=== PATIENT | male | born 1950 | race Caucasian/White ===

== ENCOUNTER → 2017-08-22 | Outpatient (REF) | payer MEDICARE, OTHER ==
[2016-10-30 10:49] VITALS: BMI 48.9
[~2017-08-22] MED LIST: ACET500T68 PO; ALLO-2; ASPI-816; DOCU-416 PO; FINA5TAB64 PO; LISI-355 PO; LOR5/325 PO; NEOM1PAC11 TP; NITR-105 PO; NITR-106 PO; OXYB15TA17 PO; OXYC-865 PO; PANT40TA65 PO; SIMV-54 PO; SULF-198 PO; TAMS0.4C25 PO
== END ==
LOC: ZZSENDIN 16:12
PROVIDERS: ATTEND Urology
DX: N39.0 Urinary tract infection, site not specified (principal); R35.0 Frequency of micturition
CPT/HCPCS: 81001; 87088

== ENCOUNTER 2018-01-29 00:12 | Day surgery (SDC) | payer MEDICARE, OTHER ==
[2016-10-30 10:49] VITALS: Ht 167.6 cm; Wt 140.6 kg
[2018-01-25 13:38] LABS: PLATELET COUNT, AUTOMATED 168 K/uL (150-450)
--- NOTE | 2018-01-25 13:44 | EKG ---
FACILITY: [facility] - [place] PATIENT NAME: ARSH MANRIQUEZ : [id number] MR: [id number] V: [id number] EXAM DATE: ORDERING PHYSICIAN: DELFINA KWOK TECHNOLOGIST: CHEKO Doyle Reason : PRE-OP Blood Pressure : / mmHG Vent. Rate : 095 BPM Atrial Rate : 095 BPM P-R Int : 220 ms QRS Dur : 142 ms QT Int : 374 ms P-R-T Axes : 000 -59 042 degrees QTc Int : 469 ms Sinus rhythm with 1st degree AV block Left axis deviation Right bundle branch block Abnormal ECG When compared with ECG of 28-JUL-2016 09:42, No significant change was found Confirmed by MANOJ LEIGH ([id number]) on 01/26/2018 6:42:42 AM Referred By: ARACELY Confirmed By:MANOJ LEIGH
[~2018-01-29] VITALS: Ht 167.6 cm; Wt 140.6 kg
[~2018-01-29 00:12] MED LIST changes: -ASPI-816; +ASPI-870; +PIOG30TA3 PO
[2018-01-29] MEDS ORDERED: fentaNYL CITR 100 MCG/2 ML AMP ONE ×3 (09:24→13:18)
[2018-01-29] MEDS ORDERED: LIDOCAINE 2% IV 100 MG/5ML SYR ONE (09:25)
[2018-01-29] MEDS ORDERED: PROPOFOL EMUL(*) 10MG/ML 20 ML 20 ML ONE (09:26)
[2018-01-29] MEDS ORDERED: LIDOCAINE/SOD BICARB 8.4% SYR ID ONE (10:00)
[2018-01-29] MEDS ORDERED: LEVOFLOXACIN/D5W*500 MG/100 ML 100 ML IVPB ONE (10:00)
[2018-01-29] MEDS ORDERED: MIDAZOLAM 2 MG/2 ML VIAL IVP PRN (10:00)
[2018-01-29] MEDS ORDERED: NORMOSOL R SOLN(*) 1000 ML BAG 1,000 ML IV PRN (10:00)
[2018-01-29 10:04] VITALS: BP 121/77
--- NOTE | 2018-01-29 11:27 | HISTORY AND PHYSICAL ---
DATE OF ADMISSION: January 29, 2018 CHIEF COMPLAINT Elevated post void residual with urinary stricture disease. HISTORY OF PRESENT ILLNESS Patient is a 67-year-old white male with a long history of stricture disease dating back to his mid 20s. He was originally see in the urology clinic the end of 2015. At that time, he had a urinary tract infection and was in acute urinary retention. He was subsequently taken to the operating room on October 17. At that time, his bulbar and pendulous urethra appeared normal. He had slight narrowing of the distal urethra. He underwent a PVP prostate, which was partially completed secondary to a scope malfunction. Since that time, he has been doing well until the past two to three weeks, when he has been reporting sensation of incomplete voiding and decreased stream. When seen in the urology clinic, he had a post void residual of 750 cc. Flexible cystoscopy revealed an approximately 12-Nauruan short urethral stricture in the mid pendulous urethra. I did not advance the scope beyond this point in the office. He is now being brought to the office for planned anesthetic cystoscopy, possible urethral dilation VIU. I also considered him for possible TURP for any remaining anonymous prostatic tissue which may be causing obstruction. PAST MEDICAL HISTORY * Hypertension. * Hypercholesterolemia. * Gout. * COPD. * Urethral stricture disease with elevated post void residuals and history of urinary tract infections. PAST SURGICAL HISTORY * Cholecystectomy. * Appendectomy. * Urethral dilation done in approximately 2009. * Partial photovaporization of prostate in September 2016. ALLERGIES PENICILLIN. CURRENT MEDICATIONS * Lisinopril. * Hydrochlorothiazide * Simvastatin. * Allopurinol. * Finasteride. * Tamsulosin. * Aspirin. * Pioglitazone. FAMILY HISTORY Noncontributory. REVIEW OF SYSTEMS Patient denies shortness of breath, chest pain, nausea or vomiting, fever, chills, liver disease or chronic headache. PHYSICAL EXAMINATION Patient is a well-developed, obese white male in no acute distress. HEENT: Normocephalic, atraumatic. Chest is clear to auscultation bilaterally. Cardiovascular: Regular rate and rhythm. Abdomen: Soft and obese. No masses palpated. : Deferred to OR. Extremities: Without clubbing, cyanosis or edema. Neurological: Nonfocal. ASSESSMENT * 67-year-old white male with long history of urethral stricture disease, now with recurrent mid pendulous stricture as well as elevated post void residuals. PLAN Possible urethral dilation and VIU if indicated. MTDD
[2018-01-29] MEDS ORDERED: IOPAMIDOL-200 50 ML VIAL IS ONE (12:05)
[2018-01-29] MEDS ORDERED: ONDANSETRON 4 MG/2 ML VIAL ONE (12:40)
[2018-01-29] MEDS ORDERED: BELLADONNA ALK/OPIUM 60MG SUPP PR ONE (12:47)
[2018-01-29] MEDS ORDERED: WATER STERILE IRRIG(*) 1000ML 1,000 ML ONE (13:00)
[2018-01-29] MEDS ORDERED: PHEN200T32 PO (13:30)
[2018-01-29] MEDS ORDERED: DOCU-416 PO (13:30)
[2018-01-29] MEDS ORDERED: HYDR453.8 TP (13:31)
--- NOTE | 2018-01-29 13:36 | RADIOLOGY IMAGING REPORT ---
FACILITY: [facility] [place]IENT NAME: Dayne Lao : 1950 MR: [id number] V: [id number] EXAM DATE: ORDERING PHYSICIAN: PRECIOUS YUAN TECHNOLOGIST: Location: [facility] [place] Patient: Dayne Lao : 1950 Visit/Account:[id number] Date of Sevice: 01/29/2018 OR fluoroscopy films: Pelvis History:VIU Comparison:None Findings: Fluoroscopy and imaging was provided for Dr. Yuan. 4 seconds of fluoroscopy time was uti lized for a AK of 7.47 mGy. 2 images of the pelvis are archived to PACS which demonstrate procedure in progress. IMPRESSION: Fluoroscopy and imaging provided for Dr. Yuan please see his report for details. Report Dictated By: Nelia Jerome MD at 01/29/2018 1:29 PM Report E-Signed By: Nelia Jerome MD at 01/29/2018 1:32 PM WSN:[id number]
[2018-01-29] MEDS ORDERED: APAP/HYDROCODONE 325/5 TAB PO ONE (13:55)
--- NOTE | 2018-01-29 13:59 | OPERATIVE REPORT 1 ---
EVENT DATE: January 29, 2018 SURGEON: Raymond Yuan MD ANESTHESIOLOGIST: Dale Slade MD ANESTHESIA: General anesthetic. PREOPERATIVE DIAGNOSIS Urethral stricture. POSTOPERATIVE DIAGNOSIS Urethral stricture. PROCEDURES PERFORMED 1. Cystoscopy. 2. Visual internal urethrotomy and urethral dilation. 3. Hedrick catheter placement over wire. ESTIMATED BLOOD LOSS 5 mL INTRAVENOUS FLUIDS Crystalloids. DRAINS A 24-Congolese Hedrick catheter. COMPLICATIONS None. CONDITION Patient taken to recovery area awake, in stable condition. STATEMENT OF MEDICAL NECESSITY Patient is a 67-year-old white male with a long history of urethral stricture disease who recently noted decreased force of stream. In the office, cystoscopy was performed. He was noted to have a proximal pendulous urethral stricture of approximately 12-Congolese in size and an elevated postvoid residual of approximately 700 mL. He is now being brought to the operating room for planned anesthetic cystoscopy, possible VIU, urethral dilation, and TURP as indicated. DESCRIPTION OF OPERATION PERFORMED Patient was brought to the operating room. After general anesthetic was obtained, he was placed in the dorsal lithotomy position and prepped and draped in the usual sterile manner. Anesthetic cystoscopy was performed with a 17- Congolese Black scope with the 12-degree lens. He had a normal-appearing distal pendulous urethra. Down at the proximal pendulous portion, there was mild narrowing of a short length of approximately 1 to 2 mm. It was approximately 12 -Congolese in size and thin veil-like in nature. The scope easily passed through this narrowing down into the bulb where a tighter stricture at the mid bulbar urethra was encountered. This was approximately 8-Congolese in size. At this point, a Super Stiff wire was advanced in an access sheath through the working channel of the scope. The wire was advanced beyond the stricture into the bladder where it was curled, which was confirmed by fluoroscopic imaging. At this point, the cystoscope was removed, and the VIU equipment was inserted. The cold knife with a 20-Congolese sheath was then used to perform a visual internal urethrotomy at the bulbar stricture at the 12 o'clock position. The scope easily passed through this area into the bladder. The bladder neck was open. He had no significant obstructing lateral or median lobes, although his bladder neck was mildly elevated. The bladder was distended with urine. There were no obvious bladder tumors or other lesions. At this point, the VIU scope was removed. The wire was kept in place, and urethral dilation was performed starting at 20, proceeding up to 24-Congolese using the Robert dilators over the wire. Following this, a 24-Congolese Councill type catheter was advanced over the wire using the Seldinger technique into the bladder. The balloon was inflated. The wire was removed. The Hedrick catheter was placed to gravity drainage. A B and O suppository was given per rectum at the conclusion of the case. The patient was awakened in the operating room and taken to the recovery area in stable condition. PLAN The plan will be to allow the patient to be discharged home today on [place], [place], and Pyridium. We will send him home with his Hedrick catheter in place, and we will remove it in the office in one to two days. HOWARD
[2018-01-29 14:15] VITALS: BP 142/86
[2018-01-29 14:45] VITALS: BP 137/83
[2018-01-29 15:15] VITALS: BP 144/75
[2018-01-29 15:34] VITALS: BP 146/83
[2018-01-29 15:37] VITALS: BP 160/87
== END 2018-01-29 14:15 | disposition home or self-care (01) ==
LOC: OR 00:12
PROVIDERS: ATTEND Urology
DX: N35.9 Urethral stricture, unspecified (principal); I10 Essential (primary) hypertension; E78.00 Pure hypercholesterolemia, unspecified; J44.9 Chronic obstructive pulmonary disease, unspecified; Z79.82 Long term (current) use of aspirin; Z79.899 Other long term (current) drug therapy; Z87.448 Personal history of other diseases of urinary system; E11.9 Type 2 diabetes mellitus without complications; E66.01 Morbid (severe) obesity due to excess calories
CPT/HCPCS: 36415; 36416; 52275; 76000; 81001; 82948; 83036; 84153; 85025; 87088; 93005; A9270; J1956; J2001; J2405; J2704; J3010; 82040; 82247; 82310; 82374; 82435; 82565; 82947; 84075; 84132; 84155; 84295; 84450; 84460; 84520; Q9966

== ENCOUNTER → 2018-05-17 | Outpatient (REF) | payer MEDICARE, OTHER ==
[2016-10-30 10:49] VITALS: BMI 48.9
[~2018-05-17] MED LIST changes: +HYDR453.8 TP; +PHEN200T32 PO; -PIOG30TA3 PO; +PIOG30TA71 PO
== END ==
LOC: ZZSENDIN 10:15
PROVIDERS: ATTEND Family Medicine
DX: R80.1 Persistent proteinuria, unspecified (principal)
CPT/HCPCS: 84156

== ENCOUNTER → 2019-03-11 | Outpatient (CLI) | payer MEDICARE, OTHER ==
[2016-10-30 10:49] VITALS: BMI 48.9
[~2019-03-11] MED LIST changes: +HYDR-653 PO; +OXYB10TA21 PO
== END ==
LOC: LAB 15:13
PROVIDERS: ATTEND Urology
DX: N39.0 Urinary tract infection, site not specified (principal); R33.8 Other retention of urine
CPT/HCPCS: 81001; 87077; 87088; 87186